=== PATIENT | female | born 1975 | race African-American/Black ===

== ENCOUNTER 2016-12-08 11:21 | Emergency (ER) | payer OTHER ==
[~2016-12-08] VITALS: Ht 167.6 cm; Wt 88.0 kg
[~2016-12-08 11:21] MED LIST: AMOX500T2
[2016-12-08] MEDS ORDERED: IBUPROFEN 600MG TABLET PO ONE (16:15)
[2016-12-08 16:23] VITALS: BP 126/47
== END 2016-12-08 16:58 | disposition home or self-care (01) ==
LOC: ER 15:44
DX: S39.012A Strain of muscle, fascia and tendon of lower back, initial encounter (principal); V43.52XA Car driver injured in collision with other type car in traffic accident, initial encounter; Y93.89 Activity, other specified; Y92.89 Other specified places as the place of occurrence of the external cause; Y99.8 Other external cause status
CPT/HCPCS: 99282

== ENCOUNTER 2016-12-10 22:12 | Emergency (ER) | payer OTHER ==
[~2016-12-10] VITALS: Ht 167.6 cm; Wt 89.0 kg
[2016-12-11] MEDS ORDERED: LOPERAMIDE 2 MG/10 ML UDC PO ONE (01:30)
[2016-12-11] MEDS ORDERED: KETOROLAC 60MG/2ML VIAL IM ONE (04:00)
[2016-12-11 05:21] VITALS: BP 107/52
== END 2016-12-11 05:32 | disposition home or self-care (01) ==
LOC: ER 22:12
DX: R19.7 Diarrhea, unspecified (principal); R10.84 Generalized abdominal pain; Z87.828 Personal history of other (healed) physical injury and trauma
CPT/HCPCS: 96372; 99283; J1885; Z7610

== ENCOUNTER 2017-03-10 18:58 | Emergency (ER) | payer MEDICAID, OTHER ==
[~2017-03-10] VITALS: Ht 167.6 cm; Wt 87.0 kg
[2017-03-10 19:18] VITALS: BP 127/73
== END 2017-03-10 21:07 | disposition home or self-care (01) ==
LOC: ER 18:58
DX: H04.89 Other disorders of lacrimal system (principal); H61.21 Impacted cerumen, right ear
CPT/HCPCS: 69209; 99282

== ENCOUNTER 2018-08-12 08:53 | Emergency (ER) | payer MEDICAID ==
[~2018-08-12] VITALS: Ht 167.6 cm; Wt 81.0 kg
[2018-08-12] MEDS ORDERED: IBUPROFEN 600MG TABLET PO ONE (11:00)
[2018-08-12 11:57] LABS: CLARITY URINE CLEAR (CLEAR); COLOR URINE YELLOW (YELLOW); KETONES URINE NEGATIVE (NEGATIVE); LEUKOCYTE ESTERASE URINE NEGATIVE (NEGATIVE); NITRITE URINE NEGATIVE (NEGATIVE); OCCULT BLOOD URINE 3+ (NEGATIVE); PH URINE 6.5 (4.5-8.0); PROTEIN URINE NEGATIVE (NEGATIVE); SPECIFIC GRAVITY URINE 1.016 (1.005-1.030); UROBILINOGEN URINE 0.2 E.U./dL (0.2-1.0)
[2018-08-12 12:35] VITALS: BP 133/67
== END 2018-08-12 12:45 | disposition home or self-care (01) ==
LOC: ER 08:53
DX: M54.5 Low back pain (principal); G89.29 Other chronic pain; M47.897 Other spondylosis, lumbosacral region
CPT/HCPCS: 72100; 81025; 99284

== ENCOUNTER 2019-03-12 10:55 | Emergency (ER) | payer MEDICAID ==
[~2019-03-12] VITALS: Ht 167.6 cm; Wt 90.0 kg
[2019-03-12 12:40] LABS: BG BASE EXCESS 2.4 mmol/L (-2.0-2.0); BG CARBOXYHEMOGLOBIN 0.7 % (0.5-1.5); BG DEOXYHEMOGLOBIN 2.8 % (0.0-5.0); BG FRACTION INSPIRED OXYGEN 21; BG HCO3 ACT 25.8 mmol/L (22.0-26.0); BG METHEMOGLOBIN 0.3 % (0.0-1.5); BG OXYGEN SATURATION 97.2 % (92.0-98.5); BG OXYHEMOGLOBIN 96.2 % (94.0-97.0); BG PCO2 36.5 mmHg (35.0-45.0); BG PH 7.468 (7.350-7.450); BG PO2 91.2 mmHg (75.0-100.0); BG SAMPLE SITE RIGHT RADIAL; BG TOTAL HEMOGLOBIN 14.6 g/dL (12.0-18.0); BG VENT MODE ROOM AIR
[2019-03-12 13:25] VITALS: BP 138/62
== END 2019-03-12 13:31 | disposition home or self-care (01) ==
LOC: ER 10:55
DX: J68.8 Other respiratory conditions due to chemicals, gases, fumes and vapors (principal)
CPT/HCPCS: 36600; 81025; 82375; 82805; 99283

== ENCOUNTER 2020-09-01 13:37 | Emergency (ER) | payer MEDICAID, OTHER ==
[~2020-09-01] VITALS: Ht 167.6 cm; Wt 86.0 kg
[~2020-09-01 13:37] MED LIST changes: -AMOX500T2; +ASPI-1406 PO; +ATOR20TA PO; +METO25TA6 PO; +MULT-1146 MT
[2020-09-01] MEDS ORDERED: IBUPROFEN 600MG TABLET PO ONE (15:30)
[2020-09-01] MEDS ORDERED: IBUP-2029 MT (15:41)
[2020-09-01 15:48] VITALS: BP 118/98
== END 2020-09-01 15:45 | disposition home or self-care (01) ==
LOC: ER 13:37
DX: S39.92XA Unspecified injury of lower back, initial encounter (principal); I10 Essential (primary) hypertension; E78.00 Pure hypercholesterolemia, unspecified; Z88.8 Allergy status to other drugs, medicaments and biological substances; Z79.82 Long term (current) use of aspirin; V43.52XA Car driver injured in collision with other type car in traffic accident, initial encounter; Y93.89 Activity, other specified; Y92.411 Interstate highway as the place of occurrence of the external cause; Y99.8 Other external cause status
CPT/HCPCS: 72100; 81025; 99283

== ENCOUNTER 2020-09-20 20:55 | Emergency (ER) | payer OTHER ==
[~2020-09-20] VITALS: Ht 167.6 cm; Wt 89.0 kg
[~2020-09-20 20:55] MED LIST changes: +IBUP-2029 MT; -MULT-1146 MT
[2020-09-20] MEDS ORDERED: KETOROLAC 60MG/2ML VIAL IM ONE (23:00)
[2020-09-20] MEDS ORDERED: AMOX500T2 MT (23:13)
[2020-09-20 23:28] VITALS: BP 147/67
== END 2020-09-20 23:28 | disposition home or self-care (01) ==
LOC: ER 20:55
DX: H66.92 Otitis media, unspecified, left ear (principal)
CPT/HCPCS: 96372; 99283; J1885

== ENCOUNTER 2021-05-17 06:01 | Inpatient (IN) | payer OTHER ==
[~2021-05-17] VITALS: Ht 167.6 cm; Wt 86.2 kg
[~2021-05-17 06:01] MED LIST changes: +AMOX500T2 MT
[2021-05-17] MEDS ORDERED: MORPHINE SULFATE 2 MG/ML CPJ (NOT FOR IM USE) IV ONE (07:15)
[2021-05-17 08:59] LABS: EOSINOPHILS % 1.9 % (0.0-5.0); HEMATOCRIT. 38.2 % (36.0-48.0); HEMOGLOBIN. 13.3 g/dL (12.0-16.0); LYMPHOCYTES % 26.4 % (20.0-50.0); MEAN CORPUSCULAR HEMOGLOBIN 30.5 pg (28.0-32.0); MEAN CORPUSCULAR VOLUME 87.6 fL (81.0-99.0); MEAN PLATELET VOLUME 7.5 fl (7.4-10.4); MONOCYTES % 8.9 % (2.0-8.0); NEUTROPHILS % 61.8 % (40.0-76.0); PLATELET 335 x1000/uL (130-400); RED BLOOD CELL COUNT 4.36 mill/uL (4.2-5.4); RED CELL DISTRIBUTION WIDTH 13.3 % (11.6-14.6)
[2021-05-17 09:14] LABS: HCG SCREEN NEGATIVE
[2021-05-17 09:23] LABS: CHLORIDE 102 mEq/L (98-107)
[2021-05-17 09:27] LABS: ETHANOL BLOOD < 10 mg/dL
[2021-05-17 10:00] LABS: *COCAINE SCREEN URINE NEGATIVE (NEGATIVE); CANNABINOID URINE SCREEN NEGATIVE (NEGATIVE); METHADONE URINE SCREEN NEGATIVE (NEGATIVE); PHENCYCLIDINE URINE SCREEN NEGATIVE (NEGATIVE)
[2021-05-17 10:01] LABS: *AMPHETAMINES SCREEN URINE NEGATIVE (NEGATIVE); *BARBITURATES SCREEN URINE NEGATIVE (NEGATIVE); *BENZODIAZEPINES SCREEN URINE NEGATIVE (NEGATIVE)
[2021-05-17 10:15] LABS: OPIATES URINE SCREEN PRESUMTIVE POSITIVE (NEGATIVE)
[2021-05-17] MEDS ORDERED: ASPIRIN 325MG EC TABLET PO ONE (10:30)
[2021-05-17] MEDS ORDERED: NITROGLYCERIN 0.4MG TABLET SL SL ONE (10:30)
[2021-05-17] MEDS ORDERED: IOHEXOL-350 100 ML BOTTLE ONE (12:47)
[2021-05-17] MEDS ORDERED: DEXTROSE 50% WATER 50ML SYRINGE IV PRN ×2 (18:15)
[2021-05-17] MEDS ORDERED: NALOXONE HCL 0.4MG/ML VIAL IV PRN (18:15)
[2021-05-17] MEDS ORDERED: ENOXAPARIN 40MG/0.4ML SYR SUBCUT SCH (18:15)
[2021-05-17] MEDS ORDERED: ONDANSETRON HCL 4MG/2ML INJ IV PRN (18:15)
[2021-05-17] MEDS ORDERED: ACETAMINOPHEN 325MG TABLET PO PRN (18:15)
[2021-05-17] MEDS ORDERED: DOCUSATE SODIUM 100MG CAPSULE PO PRN (18:15)
[2021-05-17] MEDS: BLOOD SUGAR DIAGNOSTIC STRIP TEST SCH ×2 (19:10→21:00)
[2021-05-17] MEDS: INSULIN LISPRO 100 UNITS/ML SUBCUT SCH ×2 (19:17→21:00)
[2021-05-17] MEDS: ENOXAPARIN 30MG/0.3ML SYR SUBCUT SCH (21:00)
[2021-05-17 22:00] VITALS: BP 131/68
[2021-05-17] MEDS: HYDROCODONE/ACETAMINOPHEN 5/325MG TABLET PO PRN (22:12)
[2021-05-17] MEDS ORDERED: *PATIENT'S OWN MEDICATION STORAGE XX SCH (23:15)
[2021-05-18 00:05] VITALS: BP 114/47
[2021-05-18 04:00] VITALS: BP 105/56
[2021-05-18] MEDS: OMEPRAZOLE 20MG CAPSULE EXTENDED RELEASE PO SCH (06:16)
[2021-05-18] MEDS: BLOOD SUGAR DIAGNOSTIC STRIP TEST SCH ×4 (06:45→20:51)
[2021-05-18] MEDS: INSULIN LISPRO 100 UNITS/ML SUBCUT SCH ×4 (07:15→20:51)
[2021-05-18 07:21] LABS: BASOPHILS % 0.6 % (0.0-2.0); EOSINOPHILS % 2.3 % (0.0-5.0); HEMATOCRIT. 40.8 % (36.0-48.0); HEMOGLOBIN. 14.5 g/dL (12.0-16.0); LYMPHOCYTES % 26.4 % (20.0-50.0); MEAN CORPUSCULAR HEMOGLOBIN 31.2 pg (28.0-32.0); MEAN CORPUSCULAR VOLUME 87.7 fL (81.0-99.0); MEAN PLATELET VOLUME 7.4 fl (7.4-10.4); MONOCYTES % 9.6 % (2.0-8.0); NEUTROPHILS % 61.1 % (40.0-76.0); PLATELET 344 x1000/uL (130-400); RED BLOOD CELL COUNT 4.66 mill/uL (4.2-5.4); RED CELL DISTRIBUTION WIDTH 13.7 % (11.6-14.6)
[2021-05-18 07:38] LABS: CHLORIDE 102 mEq/L (98-107)
[2021-05-18 07:54] LABS: PHOSPHORUS 3.6 mg/dL (2.5-4.9)
[2021-05-18 07:55] LABS: LDL CHOLESTEROL 92 mg/dL (5-100)
[2021-05-18 07:57] LABS: T4 FREE 0.89 ng/dL (0.76-1.46)
[2021-05-18 08:00] VITALS: BP 114/51
[2021-05-18 08:01] LABS: HDL CHOLESTEROL 45 mg/dL (40-59)
[2021-05-18] MEDS: ENOXAPARIN 30MG/0.3ML SYR SUBCUT SCH (08:35)
[2021-05-18] MEDS ORDERED: POTASSIUM CHLORIDE 20MEQ TABLET SR PO NR ×3 (11:00→18:00)
[2021-05-18 12:00] VITALS: BP 101/59
[2021-05-18] MEDS: HYDROCODONE/ACETAMINOPHEN 5/325MG TABLET PO PRN (14:48)
[2021-05-18 16:00] VITALS: BP 106/66
[2021-05-18 20:00] VITALS: BP 110/68
[2021-05-19] VITALS: BP 103/64
[2021-05-19 04:00] VITALS: BP 105/59
[2021-05-19] MEDS: BLOOD SUGAR DIAGNOSTIC STRIP TEST SCH ×2 (06:20→11:45)
[2021-05-19] MEDS: INSULIN LISPRO 100 UNITS/ML SUBCUT SCH ×2 (06:20→12:15)
[2021-05-19 07:26] LABS: BASOPHILS % 0.6 % (0.0-2.0); HEMATOCRIT. 37.5 % (36.0-48.0); LYMPHOCYTES % 27.1 % (20.0-50.0); MEAN CORPUSCULAR HEMOGLOBIN 30.1 pg (28.0-32.0); MEAN CORPUSCULAR VOLUME 86.9 fL (81.0-99.0); MEAN PLATELET VOLUME 7.6 fl (7.4-10.4); MONOCYTES % 9.5 % (2.0-8.0); NEUTROPHILS % 60.8 % (40.0-76.0); PLATELET 310 x1000/uL (130-400); RED BLOOD CELL COUNT 4.31 mill/uL (4.2-5.4); RED CELL DISTRIBUTION WIDTH 13.6 % (11.6-14.6)
[2021-05-19] MEDS: OMEPRAZOLE 20MG CAPSULE EXTENDED RELEASE PO SCH (07:34)
[2021-05-19 07:47] LABS: CHLORIDE 107 mEq/L (98-107)
[2021-05-19] MEDS ORDERED: ENOXAPARIN 40MG/0.4ML SYR SUBCUT SCH (09:00)
[2021-05-19] MEDS ORDERED: POTASSIUM CHLORIDE 10MEQ TABLET SR PO SCH (09:30)
[2021-05-19 12:00] VITALS: BP 99/59
[2021-05-19 13:56] VITALS: BP 99/59
== END 2021-05-19 15:15 | disposition home or self-care (01) | DRG 203 ==
LOC: ER 06:15 → 5WST 17:00 → EDBEDREQ 17:07 → ENRESERV 19:37
PROVIDERS: ADMIT Internal Medicine; ATTEND Internal Medicine
DX: M94.0 Chondrocostal junction syndrome [Tietze] (principal); E11.9 Type 2 diabetes mellitus without complications; E66.9 Obesity, unspecified; E78.00 Pure hypercholesterolemia, unspecified; E78.5 Hyperlipidemia, unspecified; I48.91 Unspecified atrial fibrillation; E87.6 Hypokalemia; Z20.822 Contact with and (suspected) exposure to COVID-19; I10 Essential (primary) hypertension; Z82.49 Family history of ischemic heart disease and other diseases of the circulatory system; Z83.3 Family history of diabetes mellitus; Z88.8 Allergy status to other drugs, medicaments and biological substances; Z68.30 Body mass index [BMI] 30.0-30.9, adult; Z71.3 Dietary counseling and surveillance
CPT/HCPCS: 36415; 71045; 71275; 80048; 80053; 80061; 80076; 80305; 80320; 82962; 83036; 83735; 83880; 84100; 84439; 84443; 84484; 84703; 85025; 87426; 93005; 93306; 93970; 97161; 99285; J1650; J1815; J2270; Q9967; G0480

== ENCOUNTER 2021-08-28 16:01 | Emergency (ER) | payer OTHER ==
[~2021-08-28] VITALS: Ht 167.6 cm; Wt 86.0 kg
[~2021-08-28 16:01] MED LIST changes: -AMOX500T2 MT
[2021-08-28] MEDS ORDERED: LIDOCAINE 5% PATCH TOP SCH (16:14)
[2021-08-28] MEDS ORDERED: KETOROLAC 30MG/ML VIAL IM ONE (16:15)
[2021-08-28 17:35] LABS: CLARITY URINE CLEAR (CLEAR); COLOR URINE YELLOW (YELLOW); KETONES URINE TRACE (NEGATIVE); LEUKOCYTE ESTERASE URINE NEGATIVE (NEGATIVE); NITRITE URINE NEGATIVE (NEGATIVE); OCCULT BLOOD URINE NEGATIVE (NEGATIVE); PH URINE 6.5 (4.5-8.0); PROTEIN URINE 1+ (NEGATIVE); SPECIFIC GRAVITY URINE 1.025 (1.005-1.030)
[2021-08-28] MEDS ORDERED: NAPR-1176 MT (17:41)
[2021-08-28] MEDS ORDERED: CYCL5TAB MT (17:41)
[2021-08-28 18:04] VITALS: BP 112/75
== END 2021-08-28 18:05 | disposition home or self-care (01) ==
LOC: ER 16:01
DX: M54.50 Low back pain, unspecified (principal); E78.00 Pure hypercholesterolemia, unspecified; I10 Essential (primary) hypertension; Z79.899 Other long term (current) drug therapy
CPT/HCPCS: 72100; 81003; 81025; 96372; 99284; J1885

== ENCOUNTER 2021-08-29 09:04 | Emergency (ER) | payer OTHER ==
[~2021-08-29] VITALS: Ht 167.6 cm; Wt 68.0 kg
[~2021-08-29 09:04] MED LIST changes: +CYCL5TAB MT; +NAPR-1176 MT
[2021-08-29 09:17] VITALS: BP 131/68
[2021-08-29] MEDS ORDERED: TETRACAINE 0.5% OPHTH DROPS 4ML BOTHEYE ONE (10:30)
[2021-08-29] MEDS ORDERED: BALANCED SALT IRRIG SOLN 15ML TOP ONE (10:30)
[2021-08-29] MEDS ORDERED: FLUORESCEIN SODIUM 1MG/STRIP BOTHEYE ONE (10:30)
== END 2021-08-29 13:13 | disposition home or self-care (01) ==
LOC: ER 09:16
DX: S05.8X1A Other injuries of right eye and orbit, initial encounter (principal); W22.8XXA Striking against or struck by other objects, initial encounter; Y93.89 Activity, other specified; Y92.013 Bedroom of single-family (private) house as the place of occurrence of the external cause; I10 Essential (primary) hypertension; E78.00 Pure hypercholesterolemia, unspecified; Z79.899 Other long term (current) drug therapy
CPT/HCPCS: 99283

== ENCOUNTER 2022-09-20 14:15 | Emergency (ER) | payer OTHER ==
[~2022-09-20] VITALS: Ht 167.6 cm; Wt 94.0 kg
[2022-09-20 14:43] VITALS: BP 122/74; PULSE 80; RESP 18; TEMP 98.6; O2SAT 100
[2022-09-20 20:26] LABS: BG CARBOXYHEMOGLOBIN 0.5 % (0.5-1.5); BG DEOXYHEMOGLOBIN 3.8 % (0.0-5.0); BG FRACTION INSPIRED OXYGEN 21; BG HCO3 ACT 26.4 mmol/L (22.0-26.0); BG METHEMOGLOBIN 0.4 % (0.0-1.5); BG OXYGEN SATURATION 96.2 % (92.0-98.5); BG OXYHEMOGLOBIN 95.3 % (94.0-97.0); BG PCO2 40.7 mmHg (35.0-45.0); BG PO2 80.3 mmHg (75.0-100.0); BG SAMPLE SITE LEFT RADIAL; BG TOTAL HEMOGLOBIN 14.1 g/dL (12.0-18.0); BG VENT MODE ROOM AIR
== END 2022-09-20 19:33 | disposition home or self-care (01) ==
LOC: ER 14:19
DX: T59.811A Toxic effect of smoke, accidental (unintentional), initial encounter (principal); Z88.9 Allergy status to unspecified drugs, medicaments and biological substances; Y92.9 Unspecified place or not applicable
CPT/HCPCS: 36600; 82375; 82805; 99283

== ENCOUNTER 2023-02-05 20:45 | Emergency (ER) | payer OTHER ==
[~2023-02-05] VITALS: Ht 167.6 cm; Wt 95.5 kg
[2023-02-05 21:07] VITALS: O2SAT 98
[2023-02-05] MEDS ORDERED: IBUP-2029 MT (22:26)
[2023-02-05] MEDS ORDERED: PSEU120T56 MT (22:26)
[2023-02-05 23:05] VITALS: BP 117/72; PULSE 80; RESP 17; TEMP 99
== END 2023-02-05 23:14 | disposition home or self-care (01) ==
LOC: ER 20:45
DX: B34.9 Viral infection, unspecified (principal); M54.59 Other low back pain; Z88.8 Allergy status to other drugs, medicaments and biological substances
CPT/HCPCS: 71045; 99283

== ENCOUNTER 2023-10-06 22:05 | Emergency (ER) | payer OTHER ==
[~2023-10-06] VITALS: Ht 167.6 cm; Wt 91.0 kg
[~2023-10-06 22:05] MED LIST changes: +PSEU120T56 MT
[2023-10-06 22:16] VITALS: BP 127/66; RESP 16; TEMP 97.8; O2SAT 98
[2023-10-06 22:17] VITALS: PULSE 86
[2023-10-06] MEDS ORDERED: VALA100044 MT (23:02)
[2023-10-06 23:27] LABS: BASOPHILS % 0.7 % (0.0-2.0); EOSINOPHILS % 2.1 % (0.0-5.0); HEMATOCRIT. 38.4 % (36.0-48.0); HEMOGLOBIN. 13.4 g/dL (12.0-16.0); LYMPHOCYTES % 30.2 % (20.0-50.0); MEAN CORPUSCULAR HEMOGLOBIN 31.3 pg (28.0-32.0); MEAN CORPUSCULAR VOLUME 89.2 fL (81.0-99.0); MEAN PLATELET VOLUME 7.3 fl (7.4-10.4); MONOCYTES % 10.5 % (2.0-8.0); NEUTROPHILS % 56.5 % (40.0-76.0); PLATELET 319 x1000/uL (130-400); RED CELL DISTRIBUTION WIDTH 13.5 % (11.6-14.6); WHITE BLOOD COUNT 7.2 x1000/uL (4.5-11.0)
[2023-10-06 23:33] LABS: CHLORIDE 104 mEq/L (98-107); POTASSIUM 3.2 mEq/L (3.5-5.1); SODIUM 139 mEq/L (136-145)
[2023-10-06 23:34] LABS: CARBON DIOXIDE 32 mEq/L (21-32)
[2023-10-06 23:35] LABS: CALCIUM 9.5 mg/dL (8.7-10.4)
[2023-10-06 23:39] LABS: GLUCOSE 103 mg/dL (70-105); UREA NITROGEN BLOOD 9 mg/dL (9-23)
== END 2023-10-06 23:48 | disposition home or self-care (01) ==
LOC: ER 22:05
DX: B00.9 Herpesviral infection, unspecified (principal); Z79.899 Other long term (current) drug therapy
CPT/HCPCS: 36415; 80048; 85025; 99283

== ENCOUNTER 2024-11-20 01:29 | Inpatient (IN) | payer MEDICAID, OTHER ==
[~2024-11-20] VITALS: Ht 167.6 cm; Wt 90.7 kg
[~2024-11-20 01:29] MED LIST changes: -CYCL5TAB MT; +CYCL5TAB3 MT; +VALA100044 MT
[2024-11-20 01:36] VITALS: O2SAT 95
[2024-11-20] MEDS ORDERED: ASPIRIN 325MG EC TABLET PO SCH (02:00)
[2024-11-20 04:15] LABS: BASOPHILS % 0.8 % (0.0-2.0); EOSINOPHILS % 3.6 % (0.0-5.0); HEMATOCRIT. 35.8 % (36.0-48.0); HEMOGLOBIN. 12.4 g/dL (12.0-16.0); LYMPHOCYTES % 31.9 % (20.0-50.0); MEAN PLATELET VOLUME 7.4 fl (7.4-10.4); MONOCYTES % 11.5 % (2.0-8.0); NEUTROPHILS % 52.2 % (40.0-76.0); PLATELET 288 x1000/uL (130-400); RED BLOOD CELL COUNT 4.17 mill/uL (4.2-5.4); RED CELL DISTRIBUTION WIDTH 14.4 % (11.6-14.6)
[2024-11-20 06:34] LABS: CREATININE 1.0 mg/dL (0.6-1.0); TROPONIN I HIGH SENSITIVITY < 4 ng/L (3.0-34)
[2024-11-20 06:35] LABS: UREA NITROGEN BLOOD 11 mg/dL (9-23)
[2024-11-20 06:36] LABS: ASPARTATE AMINOTRANSFERASE 25 IU/L (<34)
[2024-11-20 06:37] LABS: BILIRUBIN DIRECT < 0.1 mg/dL (<=3.0); BILIRUBIN TOTAL 0.3 mg/dL (0.1-1.0); PROTEIN TOTAL 6.6 g/dL (6.0-8.3)
[2024-11-20] MEDS: ASPIRIN 325MG EC TABLET PO SCH (06:39)
[2024-11-20 06:54] LABS: INR 1.0
[2024-11-20 07:07] LABS: ETHANOL BLOOD < 10 mg/dL (<10)
[2024-11-20] MEDS ORDERED: ONDANSETRON HCL 4MG/2ML INJ IV PRN (07:45)
[2024-11-20] MEDS ORDERED: ACETAMINOPHEN 325MG TABLET PO PRN ×2 (07:45)
[2024-11-20] MEDS ORDERED: IPRATROPIUM/ALBUTEROL 0.5-3(2.5)MG/3ML NEB HHN PRN (07:45)
[2024-11-20] MEDS ORDERED: CLONIDINE 0.1MG TABLET PO PRN (07:45)
[2024-11-20] MEDS ORDERED: DOCUSATE SODIUM 100MG CAPSULE PO PRN (07:45)
[2024-11-20] MEDS: HYDRALAZINE HCL 25MG TABLET PO SCH (07:45)
[2024-11-20 08:00] VITALS: BP 122/49; PULSE 65; RESP 14; TEMP 36.4; O2SAT 97
[2024-11-20 09:03] VITALS: BP 133/65; PULSE 84; RESP 15; TEMP 36.4736
[2024-11-20 09:27] LABS: CREATINE KINASE MB FRACTION 2.8 ng/mL (0.5-3.6)
[2024-11-20] MEDS: ENOXAPARIN 40MG/0.4ML SYR SUBCUT SCH (09:31)
[2024-11-20] MEDS: POTASSIUM CHLORIDE 20MEQ TABLET SR PO NR (09:31)
[2024-11-20] MEDS: PANTOPRAZOLE SODIUM 40 MG/VIAL IV SCH (09:31)
[2024-11-20 12:00] VITALS: BP_SYST 114; BP_SYST 127; BP_DIAS 59; BP_DIAS 72; PULSE 63; PULSE 79; RESP 18; TEMP 36.3; O2SAT 100
[2024-11-20 15:45] LABS: CLARITY URINE CLEAR (CLEAR); COLOR URINE YELLOW (YELLOW); GLUCOSE URINE NEGATIVE (NEGATIVE); KETONES URINE NEGATIVE (NEGATIVE); LEUKOCYTE ESTERASE URINE NEGATIVE (NEGATIVE); NITRITE URINE NEGATIVE (NEGATIVE); OCCULT BLOOD URINE NEGATIVE (NEGATIVE); PH URINE 7.5 (4.5-8.0); PROTEIN URINE NEGATIVE (NEGATIVE); SPECIFIC GRAVITY URINE 1.012 (1.005-1.030); UROBILINOGEN URINE 0.2 E.U./dL (0.2-1.0)
[2024-11-20 16:00] VITALS: BP 108/52; PULSE 69; RESP 18; TEMP 36.1; O2SAT 100
[2024-11-20 16:03] LABS: *AMPHETAMINES SCREEN URINE NEGATIVE (NEGATIVE); *BARBITURATES SCREEN URINE NEGATIVE (NEGATIVE); *BENZODIAZEPINES SCREEN URINE NEGATIVE (NEGATIVE); *COCAINE SCREEN URINE NEGATIVE (NEGATIVE); CANNABINOID URINE SCREEN NEGATIVE (NEGATIVE); ECSTASY MDMA SCREEN URINE NEGATIVE (NEGATIVE); METHADONE URINE SCREEN NEGATIVE (NEGATIVE); OPIATES URINE SCREEN NEGATIVE (NEGATIVE); PHENCYCLIDINE URINE SCREEN NEGATIVE (NEGATIVE)
[2024-11-20 17:21] LABS: TROPONIN I HIGH SENSITIVITY < 4 ng/L (3.0-34)
[2024-11-20 20:00] VITALS: BP 134/73; PULSE 75; RESP 20; TEMP 35.8; O2SAT 97
[2024-11-20] MEDS: ATORVASTATIN CALCIUM 40MG TABLET PO SCH (20:55)
[2024-11-21] VITALS: BP 127/54; PULSE 70; RESP 18; TEMP 36.2; O2SAT 99
[2024-11-21 01:45] LABS: TROPONIN I HIGH SENSITIVITY < 4 ng/L (3.0-34)
[2024-11-21 04:00] VITALS: BP 136/76; PULSE 68; RESP 20; TEMP 36.1; O2SAT 95
[2024-11-21 08:00] VITALS: BP 153/79; PULSE 75; RESP 20; TEMP 36.5; O2SAT 97
[2024-11-21] MEDS: ASPIRIN 81MG TABLET PO SCH (09:00)
[2024-11-21 13:08] VITALS: BP 135/76; PULSE 72; RESP 20; TEMP 36.9; O2SAT 97
[2024-11-21 13:11] VITALS: BP 135/76; PULSE 72; RESP 20; TEMP 98.4
== END 2024-11-21 15:22 | disposition home or self-care (01) | DRG 203 ==
LOC: ER 01:29 → 7WST 05:51 → EDBEDREQ 06:01 → EDBEDREQTM 06:01 → ENRESERV 06:10
PROVIDERS: ADMIT Internal Medicine; ATTEND Internal Medicine
DX: R07.89 Other chest pain (principal); M62.82 Rhabdomyolysis; E87.6 Hypokalemia; I10 Essential (primary) hypertension
CPT/HCPCS: 36415; 71045; 80048; 80076; 80305; 80320; 81003; 82550; 82553; 83735; 83880; 84484; 85025; 85379; 93005; 99285; J1650; J2470; G0480